=== PATIENT | female | born 1965 | race Hispanic/Latino ===

== ENCOUNTER 2018-08-28 04:23 | Emergency (ER) | payer BC | END 2018-08-28 05:15 | disposition home or self-care (01) | LOC: EDH 04:23 | DX: T16.2XXA Foreign body in left ear, initial encounter (principal); Z90.49 Acquired absence of other specified parts of digestive tract; X58.XXXA Exposure to other specified factors, initial encounter; Y93.89 Activity, other specified; Y92.89 Other specified places as the place of occurrence of the external cause; Y99.8 Other external cause status | CPT/HCPCS: 69200 ==

== ENCOUNTER 2022-04-17 10:38 | Emergency (ER) | payer BC ==
[~2022-04-17] VITALS: Ht 162.6 cm; Wt 103.0 kg
[2022-04-17 11:49] LABS: BASOPHILS % (AUTO) 0.5 % (0.0-5.0); EOSINOPHILS % (AUTO) 1.7 % (0.0-8.0); HEMATOCRIT 36.9 % (36-48); LYMPHOCYTES % (AUTO) 53.4 % (21.0-51.0); MEAN CORPUSCULAR HEMOGLOBIN 20.5 pg (27.0-33.0); MEAN CORPUSCULAR HGB CONC 30.4 g/dL (32.0-36.0); MEAN CORPUSCULAR VOLUME 67.5 fL (79-99); MONOCYTES % (AUTO) 7.5 % (3.0-13.0); NEUTROPHILS % (AUTO) 36.6 % (40.0-77.0); PLATELET COUNT (AUTO) 202 K/uL (130-400); RED BLOOD CELL COUNT(AUTO) 5.47 MIL/uL (4.00-5.50); RED CELL DISTRIBUTION WIDTH 15.9 % (11.0-15.5); WHITE BLOOD COUNT (AUTO) 6.4 K/uL (4.8-10.8)
[2022-04-17 12:00] LABS: ALBUMIN 3.8 g/dL (3.5-5.0); CREATININE 0.9 mg/dL (0.5-1.5); POTASSIUM 3.7 mmol/L (3.5-5.1); TOTAL PROTEIN, SERUM 8.5 g/dL (6.0-8.3)
[2022-04-17 12:25] VITALS: BP 140/76
[2022-04-17] MEDS ORDERED: DICL50TA9 PO (14:17)
== END 2022-04-17 14:34 | disposition home or self-care (01) ==
LOC: EDH 10:38
DX: M77.8 Other enthesopathies, not elsewhere classified (principal); R20.2 Paresthesia of skin
CPT/HCPCS: 36415; 70450; 72125; 80053; 84484; 85025; 93005